=== PATIENT | male | born 1975 | race American Indian/Alaskan Native ===

== ENCOUNTER 2017-01-17 02:19 | Emergency (ER) | payer SELFPAY ==
[2017-01-17 02:34] VITALS: BP 145/95
== END 2017-01-17 03:47 | disposition left against medical advice (07) ==
LOC: ED 02:19
DX: M54.5 Low back pain (principal); Z53.21 Procedure and treatment not carried out due to patient leaving prior to being seen by health care provider

== ENCOUNTER 2017-01-17 10:57 | Emergency (ER) | payer OTHER ==
[2017-01-17 11:30] VITALS: BP 139/96
--- NOTE | 2017-01-17 12:38 | Emergency Department Report ---
ED Back Pain/Injury HPI - General Chief Complaint: Back Pain/Injury Stated Complaint: BACK PAIN Time Seen by Provider: 01/17/17 12:28 Source: patient Limitations: No Limitations - History of Present Illness Initial Comments: 41-year-old male past medical history chronic lower back pain sciatica presents with complaint of right buttock pain status post mechanical fall in his backyard 2 days ago. Patient states he slipped and fell directly onto his right buttock. Patient denies any other injuries no lacerations. Patient states he has right buttock pain radiating down the lateral side of right leg. Denies any bladder or bowel incontinence, patient is fully ambulatory without any assistance. Patient states that pain is currently approximately 6 out of 10. Has not taken any pain medicine at home since the fall. Denies any sensation of bladder fullness and adamantly denies any bowel incontinence when asked. Denies any saddle paresthesias. Denies any erectile dysfunction. Patient states he has suffered from chronic lower back and buttock pain for the last 4 years after sustaining a fall at his workplace approximately 4 years ago. MD Complaint: back pain Onset/Timin -: days(s) Similar Symptoms Previously: Yes Place: home Radiation: buttocks, right leg Severity: moderate Severity scale (0 -10): 6 Quality: aching Consistency: intermittent Improves With: none Worsens With: movement, sitting upright, walking Context: fall Associated Symptoms: denies other symptoms - Related Data Previous Rx's Medication Instructions Recorded Last Taken Type Naproxen [Naprosyn TAB] 500 mg PO BID PRN #30 tablet 01/17/17 Unknown Rx Allergies Allergy/AdvReac Type Severity Reaction Status Date / Time No Known Allergies Allergy Verified 01/17/17 11:26 ED Review of Systems ROS: Stated complaint: BACK PAIN Other details as noted in HPI Constitutional: denies: chills, fever Eyes: denies: eye pain, eye discharge, vision change ENT: denies: ear pain, throat pain Respiratory: denies: cough, shortness of breath, wheezing Cardiovascular: denies: chest pain, palpitations Endocrine: no symptoms reported Gastrointestinal: denies: abdominal pain, nausea, diarrhea Genitourinary: denies: urgency, dysuria Musculoskeletal: back pain. denies: joint swelling, arthralgia Skin: denies: rash, lesions Neurological: denies: headache, weakness, paresthesias Psychiatric: denies: anxiety, depression Hematological/Lymphatic: denies: easy bleeding, easy bruising ED Past Medical Hx - Past Medical History Previous Medical History?: No - Surgical History Past Surgical History?: No - Social History Smoking Status: Current Every Day Smoker Substance Use Type: Alcohol - Medications Home Medications: Home Medications Medication Instructions Recorded Confirmed Last Taken Type Naproxen [Naprosyn TAB] 500 mg PO BID PRN #30 tablet 01/17/17 Unknown Rx ED Physical Exam - General Limitations: No Limitations General appearance: alert, in no apparent distress - Head Head exam: Present: atraumatic, normocephalic - Eye Eye exam: Present: normal appearance, PERRL, EOMI - ENT ENT exam: Present: mucous membranes moist - Neck Neck exam: Present: normal inspection - Respiratory Respiratory exam: Present: normal lung sounds bilaterally. Absent: respiratory distress - Cardiovascular Cardiovascular Exam: Present: regular rate, normal rhythm. Absent: systolic murmur, diastolic murmur, rubs, gallop - GI/Abdominal GI/Abdominal exam: Present: soft, normal bowel sounds - Rectal Rectal exam: Present: deferred - Extremities Exam Extremities exam: Present: normal inspection - Expanded Lower Extremity Exam Right Hip exam: Present: normal inspection, full ROM, tenderness (mild tenderness right buttock region on palpation over gluteal muscles, no visible ecchymosis or hematoma, hip range of motion fully intact) Upper Leg exam: Present: normal inspection, full ROM Knee exam: Present: normal inspection, full ROM Lower Leg exam: Present: normal inspection, full ROM Gait: Positive: observed and normal - Back Exam Back exam: Present: normal inspection, full ROM, other (SLR test + 30 degress right leg) - Neurological Exam Neurological exam: Present: alert, oriented X3, CN II-XII intact, normal gait - Psychiatric Psychiatric exam: Present: normal affect, normal mood - Skin Skin exam: Present: warm, dry, intact, normal color. Absent: rash ED Course Vital Signs 01/17/17 11:25 Temperature 97.9 F Pulse Rate 76 Respiratory 17 Rate Blood Pressure 139/96 O2 Sat by Pulse 100 Oximetry ED Medical Decision Making - Medical Decision Making A/P: Sciatica symptoms 1-give patient trial of naproxen for pain control 2-will refer patient's primary care doctor and orthopedics for follow-up 3-patient is independently ambulatory and has no clinical signs of cord compression or cauda equina 4- I advised patient to return to the ED for any signs of paralysis severe paresthesias and groin region or any bladder or bowel incontinence, the patient expressed understanding of these instructions Critical care attestation.: If time is entered above; I have spent that time in minutes in the direct care of this critically ill patient, excluding procedure time. ED Disposition Clinical Impression: Sciatica of right side Disposition: DISCHARGED TO HOME OR SELFCARE Is pt being admited?: No Does the pt Need Aspirin: No Condition: Stable Instructions: Sciatica (ED) Prescriptions: Naproxen [Naprosyn TAB] 500 mg PO BID PRN #30 tablet PRN Reason: Pain Referrals: [facility] [Outside] - 3-5 Days NII POLLARD MD [Staff Physician] - 3-5 Days AWA BASILIO MD [Staff Physician] - 3-5 Days Forms: Work/School Release Form(ED) Time of Disposition: 12:39
== END 2017-01-17 12:43 | disposition home or self-care (01) ==
LOC: ED 10:57
DX: M54.41 Lumbago with sciatica, right side (principal); G89.29 Other chronic pain; F17.200 Nicotine dependence, unspecified, uncomplicated; W01.0XXA Fall on same level from slipping, tripping and stumbling without subsequent striking against object, initial encounter; Y93.9 Activity, unspecified; Y99.9 Unspecified external cause status; Y92.009 Unspecified place in unspecified non-institutional (private) residence as the place of occurrence of the external cause
CPT/HCPCS: 99282

== ENCOUNTER 2017-02-09 16:56 | Emergency (ER) | payer OTHER ==
--- NOTE | 2017-02-09 19:09 | Emergency Department Report ---
ED Back Pain/Injury HPI - General Chief Complaint: Back Pain/Injury Stated Complaint: RIGHT SIDE BODY PAIN Time Seen by Provider: 02/09/17 19:04 Source: patient, family Mode of arrival: Ambulatory Limitations: No Limitations - History of Present Illness Initial Comments: Patient here complaining of back pain to his left lower back radiating down into his left leg and up his left side of his body for 5 days. Patient said he has a history of chronic back pain for 4 years after falling and injuring his tailbone. He said he has frequent back pain and does not have orthopedic doctor. It was reported in triage note that patient was having pain on the right lower back radiating down his right leg and up his right body but patient said he told them it was his left side. He reports pain is 9 out of 10 and aching. Denies any loss of bowel or bladder function. Denies any urinary burning frequency or urgency. Denies any hematuria. Denies any fever or chills. Denies any abdominal or testicular pain. MD Complaint: back pain, back injury (4 years ago) Onset/Timin -: days(s) Similar Symptoms Previously: Yes (chronic back pain for 4 years) Radiation: buttocks, left leg Severity: severe Severity scale (0 -10): 9 Quality: aching Consistency: constant Improves With: immobilization Worsens With: movement, walking Context: fall, other (she reports that he hurt his back 4 years ago. He has chronic back pain but he has not seen orthopedic doctor.) Associated Symptoms: denies: confusion, weakness, chest pain, numbness, difficulty walking, cough, difficulty urinating, incontinence, fever/chills, constipation, headaches, abdominal pain, loss of appetite, malaise, nausea/ vomiting, rash, seizure, shortness of breath, syncope Treatments Prior to Arrival: NSAIDS - Related Data Previous Rx's Medication Instructions Recorded Last Taken Type Naproxen [Naprosyn TAB] 500 mg PO BID PRN #20 tablet 02/09/17 Unknown Rx Allergies Allergy/AdvReac Type Severity Reaction Status Date / Time shrimp Allergy Swelling Verified 02/09/17 17:29 ED Review of Systems ROS: Stated complaint: RIGHT SIDE BODY PAIN Other details as noted in HPI Comment: All other systems reviewed and negative Constitutional: denies: chills, fever Respiratory: no symptoms reported Cardiovascular: denies: chest pain, palpitations, edema, syncope Gastrointestinal: denies: abdominal pain, nausea, vomiting Genitourinary: denies: urgency, dysuria, frequency, hematuria, discharge, testicular pain, testicular mass Musculoskeletal: back pain, arthralgia. denies: joint swelling, myalgia Skin: denies: rash Neurological: denies: headache, weakness, numbness, paresthesias, confusion, abnormal gait, vertigo ED Past Medical Hx - Past Medical History Previous Medical History?: No - Surgical History Past Surgical History?: No - Family History Family history: hypertension - Social History Smoking Status: Current Every Day Smoker Substance Use Type: Alcohol - Medications Home Medications: Home Medications Medication Instructions Recorded Confirmed Last Taken Type Naproxen [Naprosyn TAB] 500 mg PO BID PRN #20 tablet 02/09/17 Unknown Rx ED Physical Exam - General Limitations: No Limitations General appearance: alert, in no apparent distress - Head Head exam: Present: atraumatic, normocephalic, normal inspection - Eye Eye exam: Present: normal appearance, PERRL, EOMI Pupils: Present: normal accommodation - Neck Neck exam: Present: normal inspection, full ROM. Absent: tenderness, meningismus, lymphadenopathy - Expanded Neck Exam Expanded Neck exam: Absent: tenderness, midline deformity, anterior neck swelling, tracheal deviation - Respiratory Respiratory exam: Present: normal lung sounds bilaterally. Absent: respiratory distress, chest wall tenderness - Cardiovascular Cardiovascular Exam: Present: normal rhythm, tachycardia, normal heart sounds - GI/Abdominal GI/Abdominal exam: Present: soft, normal bowel sounds. Absent: distended, tenderness, guarding, rebound, rigid - Extremities Exam Extremities exam: Present: normal inspection, full ROM, normal capillary refill. Absent: tenderness, pedal edema, joint swelling, calf tenderness - Back Exam Back exam: Present: normal inspection, full ROM. Absent: tenderness, CVA tenderness (R), CVA tenderness (L), muscle spasm, paraspinal tenderness, vertebral tenderness, rash noted - Expanded Back Exam Expanded Back exam: Absent: saddle anesthesia Back exam: Negative Straight Leg Raising: Left, Right - Neurological Exam Neurological exam: Present: alert, oriented X3, normal gait, reflexes normal. Absent: motor sensory deficit - Expanded Neurological Exam Expanded Neurological exam: Absent: innattentive, memory loss-remote event, memory loss- recent event, ataxia, receptive aphasia, expressive aphasia, total aphasia, tremor, protecting the airway Patient oriented to: Present: person, place, time Speech: Present: fluid speech Cranial nerves: EOM's Intact: Normal, Gag Reflex: Normal, Nystagmus: Normal, Facial Sensation: Normal Cerebellar function: Romberg: Normal Upper motor neuron: Pronator Drift: Normal, Sensory Extinction: Normal Sensory exam: Upper Extremity Light Touch: Normal, Upper Extremity Temperature: Normal, UE 2 Point Discrimination: Normal, Lower Extremity Light Touch: Normal, Lower Extremity Temperature: Normal, LE 2 Point Discrimination: Normal Motor strength exam: RUE: 5, LUE: 5, RLE: 5, LLE: 5 DTR: bicep (R): 2+, bicep (L): 2+, tricep (R): 2+, tricep (L): 2+, knee (R): 2+ , knee (L): 2+, ankle (R): 2+, ankle (L): 2+ Best Eye Response (Nellis): (4) open spontaneously Best Motor Response (Eder): (6) obeys commands Best Verbal Response (Nellis): (5) oriented Eder Total: 15 - Psychiatric Psychiatric exam: Present: normal affect, normal mood - Skin Skin exam: Present: warm, dry, intact, normal color. Absent: rash ED Course Vital Signs 02/09/17 17:31 Temperature 98.3 F Pulse Rate 102 H Respiratory 18 Rate Blood Pressure 122/87 O2 Sat by Pulse 100 Oximetry Vital Signs 02/09/17 02/09/17 17:31 19:51 Temperature 98.3 F Pulse Rate 102 H 98 H Respiratory 18 Rate Blood Pressure 122/87 O2 Sat by Pulse 100 Oximetry - Reevaluation(s) Reevaluation #1: 02/09/17 19:41 given Percocet 5/325 mg 2 tablets in emergency room and Decadron 10 mg IM. ED Medical Decision Making - Medical Decision Making ED course: Patient with history of chronic back pain 4 years after falling. He has not been to orthopedic doctor per patient. She reports she just moved to area but he was here recently for the same problem. Patient was seen on 01/17 and was treated for sciatica and referred to orthopedic but he said he just didn't go. Pain similar to pain that he had on 17 January. I discussed with him that this is chronic pain and he needs to follow-up with orthopedic for further evaluation and treatment. Discussed the patient that he's having what is called lumbar radiculopathy which is basically sciatica and I cannot give him narcotic treatment to go home but I'll manage his pain in emergency room. Patient given Percocet 5/325 mg 2 tablets in emergency room along with Decadron 10 mg IM. He voices understanding of discharge diagnosis and treatment plan and discharged home with his family in no acute distress. Critical care attestation.: If time is entered above; I have spent that time in minutes in the direct care of this critically ill patient, excluding procedure time. ED Disposition Clinical Impression: Lumbar radiculopathy, chronic, Acute exacerbation of chronic low back pain Disposition: DISCHARGED TO HOME OR SELFCARE Is pt being admited?: No Does the pt Need Aspirin: No Condition: Stable Instructions: Lumbar Radiculopathy (ED) Additional Instructions: Please follow-up with orthopedic doctor that you're referred to on January 17, 2017 and today. Prescriptions: Naproxen [Naprosyn TAB] 500 mg PO BID PRN #20 tablet PRN Reason: Pain Referrals: AWA BASILIO MD [Staff Physician] - 02/12/17 [facility] [Outside] - 02/12/17 Forms: Work/School Release Form(ED)
[2017-02-09] MEDS ORDERED: DECADRON IM STA (19:32)
[2017-02-09] MEDS ORDERED: PERCOCET 5/325 PO ONE (19:32)
[2017-02-09 20:01] VITALS: BP 163/97
== END 2017-02-09 20:02 | disposition home or self-care (01) ==
LOC: ED 16:56
DX: M54.16 Radiculopathy, lumbar region (principal); G89.29 Other chronic pain; F17.200 Nicotine dependence, unspecified, uncomplicated; Z91.013 Allergy to seafood
CPT/HCPCS: 96372; 99282; J1100